=== PATIENT | female | born 1995 | race American Indian/Alaskan Native ===

== ENCOUNTER 2016-11-19 15:57 | Emergency (ER) | payer SELFPAY ==
[2016-11-19 16:26] VITALS: BP 121/70
[2016-11-19 19:41] LABS: Bilirubin,Urine NEG (Negative); Blood,Urine NEG (Negative); Ketones,Urine NEG (Negative); Leukocyte Esterase,Urine NEG (Negative); Mucus,Urine 2+ /HPF; Nitrite,Urine POS (Negative); Protein,Urine <15 mg/dL mg/dL (Negative); Urobilinogen,Urine < 2.0 mg/dL (<2.0)
--- NOTE | 2016-11-19 20:31 | Emergency Department Report ---
ED Female HPI - General Chief complaint: Urogenital-Female Stated complaint: BLEEDING VAGINA Time Seen by Provider: 11/19/16 19:26 Source: patient Mode of arrival: Ambulatory Limitations: No Limitations - History of Present Illness Initial comments: This is a 21-year-old female nontoxic, well nourished in appearance, no acute signs of distress presents to the ED complaining of intermittent vaginal spotting only during sexual intercourse. Patient also is complaining about vaginal discharge and describes it as foul order yellow white colored. Patient denies any abdominal pain, pelvic pain, back pain, dysuria, polyuria, fever, chills, chest pain or shortness of breath, nausea, vomiting, headache or stiff neck. Patient states in July she went under an and stated everything that she gets spotting during sexual intercourse. Patient denies vaginal bleeding besides that. Last menstrual cycle which was normal on 11/05/2016. Patient denies any allergies or past medical history. Patient is also concerned about STD and wants a check-up. MD Complaint: vaginal discharge, possible STD -: Gradual, week(s) (1) Radiation: non-radiating Severity: mild Severity scale (0 -10): 0 Improves with: none Worsens with: none Are you Now?: No Associated Symptoms: vaginal discharge. denies: vaginal bleeding, abdominal pain, nausea/vomiting, fever/chills, headaches, loss of appetite, dysuria, hematuria, rash, seizure, shortness of breath, syncope, weakness - Related Data Sexually active: No Home Medications Medication Instructions Recorded Confirmed Last Taken Vit #76/Iron,Carb/FA [Pnv 1 each PO DAILY 03/12/14 03/12/14 Unknown 29-1 Tablet] Previous Rx's Medication Instructions Recorded Last Taken Type Ibuprofen [Motrin 800 MG tab] 800 mg PO Q6H PRN #30 tablet 03/13/14 Unknown Rx metroNIDAZOLE [Flagyl] 500 mg PO Q12HR #14 tab 11/19/16 Unknown Rx Allergies Allergy/AdvReac Type Severity Reaction Status Date / Time No Known Allergies Allergy Verified 03/12/14 17:44 ED Review of Systems ROS: Stated complaint: BLEEDING VAGINA Other details as noted in HPI Constitutional: denies: chills, fever Eyes: denies: eye pain, eye discharge, vision change ENT: denies: ear pain, throat pain Respiratory: denies: cough, shortness of breath, wheezing Cardiovascular: denies: chest pain, palpitations Endocrine: no symptoms reported Gastrointestinal: denies: abdominal pain, nausea, diarrhea Genitourinary: discharge. denies: urgency, dysuria Musculoskeletal: denies: back pain, joint swelling, arthralgia Skin: denies: rash, lesions Neurological: denies: headache, weakness, paresthesias Psychiatric: denies: anxiety, depression Hematological/Lymphatic: denies: easy bleeding, easy bruising ED Past Medical Hx - Past Medical History Previous Medical History?: No Hx Hypertension: No Hx Congestive Heart Failure: No Hx Diabetes: No Hx Deep Vein Thrombosis: No Hx Renal Disease: No Hx Sickle Cell Disease: No Hx Seizures: No Hx Asthma: No Hx COPD: No Hx HIV: No - Surgical History Past Surgical History?: No - Social History Smoking Status: Never Smoker Substance Use Type: None - Medications Home Medications: Home Medications Medication Instructions Recorded Confirmed Last Taken Type Vit #76/Iron,Carb/FA [Pnv 1 each PO DAILY 03/12/14 03/12/14 Unknown History 29-1 Tablet] Ibuprofen [Motrin 800 MG tab] 800 mg PO Q6H PRN #30 tablet 03/13/14 Unknown Rx metroNIDAZOLE [Flagyl] 500 mg PO Q12HR #14 tab 11/19/16 Unknown Rx ED Physical Exam - General Limitations: No Limitations General appearance: alert, in no apparent distress - Head Head exam: Present: atraumatic, normocephalic, normal inspection - Eye Eye exam: Present: normal appearance, PERRL, EOMI. Absent: scleral icterus, conjunctival injection, nystagmus, periorbital swelling, periorbital tenderness Pupils: Present: normal accommodation - ENT ENT exam: Present: normal exam, normal orophraynx, mucous membranes moist, TM's normal bilaterally, normal external ear exam - Neck Neck exam: Present: normal inspection, full ROM. Absent: tenderness, meningismus, lymphadenopathy, thyromegaly - Respiratory Respiratory exam: Present: normal lung sounds bilaterally. Absent: respiratory distress, wheezes, rales, rhonchi, stridor, chest wall tenderness, accessory muscle use, decreased breath sounds, prolonged expiratory - Cardiovascular Cardiovascular Exam: Present: regular rate, normal rhythm, normal heart sounds. Absent: bradycardia, tachycardia, irregular rhythm, systolic murmur, diastolic murmur, rubs, gallop - GI/Abdominal GI/Abdominal exam: Present: soft, normal bowel sounds. Absent: distended, tenderness, guarding, rebound, rigid, diminished bowel sounds - Rectal Rectal exam: Present: deferred - External exam: Present: normal external exam, other (chaperoned Gemma sprayer insecticide present during exam). Absent: erythema, swelling, lesions, lacerations, ecchymosis, bleeding Speculum exam: Present: normal speculum exam, cervical discharge (white thick cottage cheese apperance with odor), other (chaperoned Gemma sprayer insecticide present during exam). Absent: erythema, vaginal discharge, vaginal bleeding, foreign body, tissue, laceration Bi-manual exam: Present: normal bi-manual exam, other (chaperoned Gemma sprayer insecticide present during exam). Absent: cervical motion tendernes, adnexal tenderness, adnexal mass, uterine enlargement, uterine tenderness - Extremities Exam Extremities exam: Present: normal inspection, full ROM, normal capillary refill. Absent: tenderness, pedal edema, joint swelling, calf tenderness - Back Exam Back exam: Present: normal inspection, full ROM. Absent: tenderness, CVA tenderness (R), CVA tenderness (L), muscle spasm, paraspinal tenderness, vertebral tenderness, rash noted - Neurological Exam Neurological exam: Present: alert, oriented X3, CN II-XII intact, normal gait, reflexes normal - Psychiatric Psychiatric exam: Present: normal affect, normal mood - Skin Skin exam: Present: warm, dry, intact, normal color. Absent: rash ED Course Vital Signs 11/19/16 16:23 Temperature 98.5 F Pulse Rate 85 Respiratory 16 Rate Blood Pressure 121/70 O2 Sat by Pulse 95 Oximetry - Reevaluation(s) Reevaluation #1: 11/19/16 20:39 Patient speaking in full sentences with no signs of distress noted. ED Medical Decision Making - Medical Decision Making This is a 21-year-old female that presents with Trichomonas and BV. Patient received a ultrasound of the pelvis to rule out products of conception and definitive radiologist the negative findings of abnormalities. The patient received Rocephin and azithromycin ED. Gonorrhea/chlamydia is currently pending. Patient was instructed to return in 3-5 days to medical records to obtain the results of gonorrhea/chlamydia. Patient be treated with Flagyl at discharge. At time time of discharge, the patient does not seem toxic or ill in appearance. No acute signs of distress noted. Patient agrees to discharge treatment plan of care. No further questions noted by the patient. Critical care attestation.: If time is entered above; I have spent that time in minutes in the direct care of this critically ill patient, excluding procedure time. ED Disposition Clinical Impression: Bacterial vaginosis, Trichomoniasis Disposition: TO HOME OR SELFCARE Is pt being admited?: No Does the pt Need Aspirin: No Condition: Stable Instructions: Metronidazole (By mouth), Bacterial Vaginosis (ED), Trichomoniasis (ED), Safe Sex (ED) Additional Instructions: Follow-up with a primary care doctor to 3-5 days or if symptoms worsen continue return to emergency room as soon as possible. Do not Consume any alcohol while taking Flagyl. Return to medical records to obtain your results of G/C. Prescriptions: metroNIDAZOLE [Flagyl] 500 mg PO Q12HR #14 tab Referrals: PRIMARY CAREMD [Primary Care Provider] - 3-5 Days JER HIGH MD [Staff Physician] - 3-5 Days [facility] [Outside] - 3-5 Days [facility] [Outside] - 3-5 Days Forms: STI Treatment and Prevention, Work/School Release Form(ED)
--- NOTE | 2016-11-19 20:47 | Ultrasound Report ---
FINAL REPORT EXAM: US PELVIC COMPLETE HISTORY: abnormal bleeding COMPARISON: None available. TECHNIQUE: Several real-time grayscale and color Doppler images were obtained. Transabdominal and transvaginal exam. Spectral analysis. FINDINGS: Uterus measures 9.1 x 4.3 x 5.6 centimeters. Endometrial stripe 6 millimeters. No discrete lesions or adnexal masses. Right ovary measures 3.6 x 2.3 x 3.0 centimeters. Left ovary measures 2.3 x 2.2 x 1.0 centimeters. Free fluid. Spectral analysis demonstrates arterial waveforms to the ovaries. Follicles are present. IMPRESSION: No discrete uterine lesions or adnexal masses. Normal physiologic changes of the ovaries.
--- NOTE | 2016-11-19 20:48 | Ultrasound Report ---
FINAL REPORT EXAM: US TRANSVAGINAL HISTORY: abnormal bleeding COMPARISON: None available. TECHNIQUE: Several real-time grayscale and color Doppler images were obtained. Transabdominal and transvaginal exam. Spectral analysis. FINDINGS: Uterus measures 9.1 x 4.3 x 5.6 centimeters. Endometrial stripe 6 millimeters. No discrete lesions or adnexal masses. Right ovary measures 3.6 x 2.3 x 3.0 centimeters. Left ovary measures 2.3 x 2.2 x 1.0 centimeters. Free fluid. Spectral analysis demonstrates arterial waveforms to the ovaries. Follicles are present. IMPRESSION: No discrete uterine lesions or adnexal masses. Normal physiologic changes of the ovaries.
[2016-11-19] MEDS ORDERED: ROCEPHIN IM ONE (21:12)
[2016-11-19] MEDS ORDERED: XYLOCAINE 1% MPF 5 mL INFILTRATI ONE (21:12)
[2016-11-19] MEDS ORDERED: ZITHROMAX PO ONE (21:12)
== END 2016-11-19 21:42 | disposition home or self-care (01) ==
LOC: ED 15:57
DX: N76.0 Acute vaginitis (principal); A59.9 Trichomoniasis, unspecified
CPT/HCPCS: 76830; 76856; 81001; 81025; 87210; 87591; 96372; 99284; J0696